=== PATIENT | male | born 1965 ===

== ENCOUNTER 2018-08-03 21:30 | Observation (INO) | payer SELFPAY ==
[~2018-08-03] VITALS: Ht 177.8 cm; Wt 106.3 kg
[2018-08-03] VITALS (105 sets, daily range): O2SAT 93–100
--- NOTE | 2018-08-03 21:11 | NUR ---
Received telephone report from NGHIA Ibarra at [facility].
--- NOTE | 2018-08-03 22:16 | NUR ---
Patient arrives at this timew via EMS on stretcher. Patient stands and transfers self to unit bed. When sitting at the side of the bed he has a small amount of dizziness, but quickly recovers and lays down in bed. Attached to unit monitoring equipment. Assessment complete. Patient has a nickel sized burn on the lateral side of index finger at the level of the first knuckle. It is dry, red, and peeling. Patient states there is no pain with it. Patient has a small amount of +1 edema in his lower extremities. His heart rate is bradycardic in the 50's with normal sounds. All other findings are WNL. Patient's , Nadira, is at the bedside. Patient has no complaints of pain at this time, but does get dizzy when he sits up or moves too much. Oriented patient to room and unit and educated on use of call light. Patient has no further questions at this time. Will continue to monitor. Call light within reach.
--- NOTE | 2018-08-03 22:30 | NUR ---
Bedside report received from NGHIA Pino. Transfer of care at this time.
[2018-08-03] MEDS ORDERED: ZETIA 10MG TAB10 MG PO (22:46)
[2018-08-03] MEDS ORDERED: CRESTOR40 MG PO (22:47)
[2018-08-03] MEDS ORDERED: PLAVIX 75MG TAB75 MG PO (22:48)
[2018-08-03] MEDS ORDERED: SINGULAIR 110 MG/TAB PO (22:49)
[2018-08-03] MEDS ORDERED: ASPI325T6 PO (22:50)
[2018-08-03] MEDS ORDERED: DYAZIDE 25 MG-31 CAP PO (22:52)
[2018-08-03] MEDS ORDERED: COZAAR 25MG25 MG/TAB PO (22:53)
[2018-08-03 23:09] LABS: MAGNESIUM 1.9 mg/dL (1.6-2.3)
[2018-08-03 23:21] LABS: TROPONIN-I < 0.012 ng/mL (0.000-0.035)
[2018-08-04] VITALS (838 sets, daily range): BP systolic 112–146; BP diastolic 75–94; PULSE 50–65; TEMP 97.5–98.7; O2SAT 84–100
--- NOTE | 2018-08-04 | NUR ---
Patient resting in bed at this time. Vitals have remained stable since arrival. Patient still has some complaints of dizziness with movement, but is fine when he is laying down. No complaints of pain. Water provided. No other needs at this time. Will continue to monitor. Call light within reach.
--- NOTE | 2018-08-04 04:00 | NUR ---
Patient sleeping at this time on CPAP. Awakens easily to noise in the room. No complaints of pain or discomfort. Vitals remain stable. Patient is still bradycardic. Has no needs at this time. Will continue to monitor. Call light within reach.
[2018-08-04 05:17] LABS: BASO % 0.7 % (0.0-2.0); EOS # 0.2 (0.0-0.7); EOS % 3.3 % (0-4.0); GRAN # 3.6 (1.4-6.5); GRAN % 66.6 % (42.2-75.2); HEMATOCRIT 39.3 % (42.0-52.0); HEMOGLOBIN 12.8 g/dl (13.5-18.0); LYMPH # 1.1 (1.2-3.4); LYMPH % 19.9 % (20.0-51.0); MEAN CELL VOLUME 86 fl (80.0-100.0); MEAN CORPUSCULAR HEMOGLOBIN 28 pg (27.0-31.0); MEAN CORPUSCULAR HGB CONC 33 g/dl (33.0-37.0); MEAN PLATELET VOLUME 10.7 fl (7.4-10.4); MONO # 0.5 (0.1-0.6); MONO % 9.1 % (1.7-9.3); PLATELET COUNT 177 K/mm3 (130-400); RED BLOOD COUNT 4.58 M/mm3 (4.20-5.60); REDCELL DISTRIBUTION WIDTH-CV 13.8 % (11.5-14.5)
[2018-08-04 05:26] LABS: CHOLESTEROL 165 mg/dL (120-200); CHOLESTEROL RISK RATIO 4.2; HDL CHOLESTEROL 39 mg/dL; LDL CHOLESTEROL 80 mg/dL; TRIGLYCERIDE 232 mg/dL
[2018-08-04 05:40] LABS: TROPONIN-I < 0.012 ng/mL (0.000-0.035)
--- NOTE | 2018-08-04 07:10 | NUR ---
Bedside report received from NGHIA Kline. Patient awake and alert awaiting breakfast. All VS WNL on monitor. Patient has no complaints at this time. Plan of Care reviewed. Care taken over at this time.
--- NOTE | 2018-08-04 07:20 | NUR ---
Bedside report given to NGHIA Garcia.
--- NOTE | 2018-08-04 10:30 | NUR ---
Patient up with PT in the carter at this time. Patient ambulates for quite some time up and down hallway with no issue. He is able to walk and talk and do math while walking.
--- NOTE | 2018-08-04 10:49 | NUR ---
Patient receiving ECHO at this time.
--- NOTE | 2018-08-04 11:19 | NUR ---
SW met with patient and in room to discuss Dc plan. Plan is to return home and follow-up with receiving worker and pcp. Patient reports that he and his reside in [facility] and is here visiting his son and daughter. Patient reports that he and his will be local another week. Patient reports that he uses CPAP nightly and denies any other medical equipment. Client emergency contact is his Nadira (DPOA) [phone]. Patient phone number is [phone]. Patient reports that they use [facility] pharmacy in their home town and if he is sent home with medications we need to send it to [facility]. Patient reports that he has insurance and is not a self-pay. Patient will give to nurse for chart and medical records. Declined home health services. No additonal needs identified at this time.
--- NOTE | 2018-08-04 13:30 | NUR ---
ECHO REPORT DISCUSSED WITH DR. ALVAREZ. HE STATES THAT HE PLANS TO DISCHARGE THE PATIENT TODAY AND HAVE HIM FOLLOW UP WITH HOME SERVICE TECHNICIAN AND PCP WHEN HE RETURNS HOME.
--- NOTE | 2018-08-04 15:10 | NUR ---
DISCHARGE INSTRUCTIONS AND PACKET REVIEWED WITH THE PATIENT AND HIS . 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 INT DISCONTINUED. 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 PATIENT AMBULATES OUT TO THE CAR WITH HIS .
== END 2018-08-04 15:10 | disposition home or self-care (01) ==
LOC: IMCU 21:30 → ICU 22:24
PROVIDERS: Nurse Practitioner Family; ADMIT Family Medicine
DX: R07.89 Other chest pain (principal); R55 Syncope and collapse; R51 Headache; R42 Dizziness and giddiness; I10 Essential (primary) hypertension; E78.5 Hyperlipidemia, unspecified; I25.10 Atherosclerotic heart disease of native coronary artery without angina pectoris; Z95.1 Presence of aortocoronary bypass graft; Z95.5 Presence of coronary angioplasty implant and graft; E80.4 Gilbert syndrome; K21.9 Gastro-esophageal reflux disease without esophagitis; Z86.73 Personal history of transient ischemic attack (TIA), and cerebral infarction without residual deficits; G47.30 Sleep apnea, unspecified; Z79.899 Other long term (current) drug therapy; Z79.82 Long term (current) use of aspirin; Z82.49 Family history of ischemic heart disease and other diseases of the circulatory system; Z80.8 Family history of malignant neoplasm of other organs or systems; E04.1 Nontoxic single thyroid nodule
CPT/HCPCS: J7030